=== PATIENT | male | born 1960 | race Caucasian/White ===

== ENCOUNTER 2019-05-12 09:13 | Day surgery (SDC) | payer OTHER ==
[~2019-05-12] VITALS: Ht 182.9 cm; Wt 108.9 kg
[2019-05-12] MEDS ORDERED: fentaNYL 0.05 MG/ML VIAL ONE (11:55)
[2019-05-12] MEDS ORDERED: MIDAZOLAM 2 MG/2 ML VIAL ONE (11:55)
[2019-05-12] MEDS ORDERED: LIDOCAINE 2% 100 MG/5 ML UJET TP ONE (11:58)
== END 2019-05-12 13:49 | disposition home or self-care (01) ==
LOC: MMU 09:13 → MDS 09:13
PROVIDERS: ATTEND Internal Medicine Gastroenterology
DX: D12.5 Benign neoplasm of sigmoid colon (principal); K31.89 Other diseases of stomach and duodenum; K22.719 Barrett's esophagus with dysplasia, unspecified; K44.9 Diaphragmatic hernia without obstruction or gangrene; K57.30 Diverticulosis of large intestine without perforation or abscess without bleeding; K21.9 Gastro-esophageal reflux disease without esophagitis; Z98.890 Other specified postprocedural states; Z87.891 Personal history of nicotine dependence; Z88.5 Allergy status to narcotic agent; Z79.899 Other long term (current) drug therapy; E66.9 Obesity, unspecified; Z68.33 Body mass index [BMI] 33.0-33.9, adult; E78.00 Pure hypercholesterolemia, unspecified; Z91.030 Bee allergy status; Z90.89 Acquired absence of other organs
CPT/HCPCS: 36415; 43239; 45385; 86677; J2250; J3010